=== PATIENT | female | born 1985 | race Caucasian/White ===

== ENCOUNTER 2017-12-20 06:09 | Inpatient (IN) ==
[2017-12-20] MEDS ORDERED: Lidocaine -MPF 1% 2 ML VIAL ID ONE (06:29)
[2017-12-20] MEDS ORDERED: CeFAZolin Syr 2,000MG/20 ML 2,000 MG/20 ML SYRINGE IVPB ONE (06:29)
[2017-12-20] MEDS ORDERED: Ringers Solution, Lactated 1,000 ML IVC SCH (06:30)
[2017-12-20] MEDS ORDERED: Acetaminophen IV 1,000 MG/100 ML INFUS..BTL IVPB ONE (06:59)
[2017-12-20] MEDS ORDERED: Scopolamine Patch 1.5 MG PATCH.TD72 TD ONE (06:59)
--- NOTE | 2017-12-20 06:59 | Anesthesia Evaluation PreOp ---
Date of Encounter: 12/20/17 Time of Encounter: 06:57 - Past History Planned Operation: LITTLE poss salpingo-oophorectomy Cardiac History: Denies any Significant Hx Pulmonary History: Denies Any Significant HX INTEGRATION SOFTWARE ENGINEER History: Denies Any Significant HX Other Medical History: Denies Any Significant HX Anesthesia History: No Prior Anesthetic Complications, Past Anesthesia (wisdom teeth, appy, csection x 2) Test: Negative (12/20/17) Alcohol Use: none Drug use: none Medications and Allergies Cetirizine HCl [Zyrtec] 10 mg PO DAILY 12/20/17 [History] 3 Allergy/AdvReac Type Severity Reaction Status Date / Time No Known Allergies Allergy Verified 12/20/17 06:44 - Meds/Allergy Pre-op Review Medications Reviewed: Yes Allergies Reviewed: Yes Beta Blockers on Current Med List: No Anesthesia Results - Labs Laboratory Tests 12/12/17 12/12/17 11:27 11:27 WBC 4.2 L Hgb 12.8 Hct 38.9 Plt Count 262 Creatinine 0.71 Est GFR ( Amer) > 60 Anesthesia Exam O2 Sat Height 1.65 m Height 1.65 m Height 1.65 m Weight 74.389 kg Weight 74.389 kg Weight 74.389 kg O2 Sat by Pulse Oximetry 100 Vital Signs Temp Pulse Resp BP Pulse Ox 98.3 F 90 18 113/79 100 12/20/17 06:34 12/20/17 06:34 12/20/17 06:34 12/20/17 06:34 12/20/17 06:34 Height: 65" Weight: 164lbs NPO (# of Hours): >8 - HEENT Pupil (Motor): Pupils equal, EOMI Mallampati: II Teeth: Normal Oral Opening: Greater than 3 - INTEGRATION SOFTWARE ENGINEER LOC: Oriented INTEGRATION SOFTWARE ENGINEER Motor: Normal RUE, Normal LUE, Normal RLE, Normal LLE, Normal Face INTEGRATION SOFTWARE ENGINEER Sensory: Normal: RUE, LUE, RLE, LLE, Face - Cardiac Rhythm: Regular - Pulmonary Breath Sounds: bilateral Clear Respiratory Effort: Symmetrical Anesthesia Assess/Plan ASA Score: 1 Modified Blayne Scale for Level of Consciousness: Cooperative, oriented, and tranquil Anesthetic Plan: General, Regional (patient refusesintrathecal duramorph) Monitoring Plan: Standard Monitors Recovery Plan: PACU
[2017-12-20] MEDS ORDERED: Lidocaine -MPF 2% 2 ML VIAL ONE (07:11)
[2017-12-20] MEDS ORDERED: Lidocaine -MPF 4% 5 ML AMPUL ONE (07:11)
[2017-12-20] MEDS ORDERED: Dexamethasone 4 MG/ML VIAL ONE (07:11)
[2017-12-20] MEDS ORDERED: *HR* Midazolam HCl 2 MG/2 ML VIAL ONE (07:11)
[2017-12-20] MEDS ORDERED: *HR* Propofol 200 MG/20 ML VIAL IVP ONE (07:11)
[2017-12-20] MEDS ORDERED: *HR* FentaNYL (PF) 100 MCG/2 ML VIAL ONE ×2 (07:11→08:38)
[2017-12-20] MEDS ORDERED: *HR* Rocuronium Bromide 50 MG/5 ML VIAL ONE (07:11)
[2017-12-20] MEDS ORDERED: Ondansetron 4 MG/2 ML VIAL ONE (07:11)
[2017-12-20] MEDS ORDERED: Neostigmine Methylsulfate 3 MG/3 ML SYRINGE ONE (07:22)
[2017-12-20] MEDS ORDERED: Bupivacaine/EPI 1:200k 0.25%PF 30 ML VIAL ONE (07:29)
[2017-12-20] MEDS ORDERED: *HR* Belladonna Alkaloids/Opium 30 MG RECTAL SUPPOSITORY RC ONE (07:37)
--- NOTE | 2017-12-20 07:41 | History & Physical Report ---
Date of Encounter: 12/20/17 Time of Encounter: 07:40 24 Hour HP Update - Instructions Instructions: If the History and Physical is less than 30 days old and was completed prior to A.M. admission and or procedure and has NOT been updated on calendar day of procedure please complete this update prior to performing procedure. - Update Patient reports changes in Medical Condition: No Changes in examination, assessment, or condition: No Changes in Medication: No Preop tests/diagnostics Reviewed: Yes Surgery Remains Indicated: Yes Consent for Planned Operative Procedure(s) Verified: Yes - Pre-Operative Checklist Preoperative Checklist Indicated: Yes Prophylactic Antibiotic Ordered: Yes Home Medications Include Beta Andrew: No Beta Andrew Taken Today (Day of Surgery): No Beta Andrew Taken Yesterday (Day Prior to Surgery): No Is VTE Prophylaxis Indicated?: Yes - Attending Attestation sunitha field facog
[2017-12-20] MEDS ORDERED: Morphine Sulfate/PF 5mg/10mL Vial ONE (07:49)
[2017-12-20] MEDS ORDERED: Water for inj. (sterile) 10 ML IV ONE (07:54)
[2017-12-20] MEDS ORDERED: *HR* Promethazine 25 MG/ML VIAL IVP PRN (08:42)
[2017-12-20] MEDS ORDERED: Dexamethasone 4 MG/ML VIAL IVP ONE (08:42)
[2017-12-20] MEDS ORDERED: *HR* Labetalol 20 MG/4 ML SYRINGE IVP PRN (08:42)
[2017-12-20] MEDS ORDERED: Ondansetron 4 MG/2 ML VIAL IVP ONE (08:42)
--- NOTE | 2017-12-20 08:57 | Anesthesia Procedures ---
Date of Encounter: 12/20/17 Time of Encounter: 07:55 Procedures: Anesthesia - Epidural/Spinal Patient ID/Chart reviewed: Yes Patient examined: Yes Consent Obtained: Yes Supplemental Oxygen: None/Room Air Sedation: Versed (mg): 2 (documented on anesthesia record) Sedation: Fentanyl (mcg): 100 (documented on anesthesia record) Site Prep: Sterile prep and drape, Povidone-Iodine 1% Patient position: upright Local Anesthetic: Lidocaine 1% Amount of Local Anesthetic used: 3 Loading Dose: Other: 250mcg duramorph in 1cc PF sterile water Interspace Used: L2-L3 Blood: No CSF: Yes Paresthesia: No Spinal Needle Gauge: 22 Spinal Dose: n/a Procedure: pt upright with monitors on, sterile prep/drape, 3cc 1% lido to L2-3, 22g quincke with clear csf, free flow, no heme, no paresthesia, 1cc PF sterile water with 250mcg pf duramorph injected, pt assited to supine, induction to GETA , no complications, pt tolerated well.
[2017-12-20] MEDS ORDERED: Lacri-Lube 3.5 GM TUBE ONE (09:39)
[2017-12-20] MEDS ORDERED: Ketorolac 30 MG/ML VIAL ONE (09:51)
--- NOTE | 2017-12-20 09:55 | OB/GYN Procedure Note ---
Hysterectomy - Diagnosis Date of procedure: 12/20/17 Hysterectomy pre-op: abnormal uterine bleeding, chronic pelvic pain, other ( Adenomyosis) Post-op diagnosis: same - Procedure Hysterectomy procedure: total abdominal hysterectomy, bilateral salpingectomy Surgeon: Berny Andrew Was there an respiratory therapist assistant present: Yes Aviation Project Manager: Jen Hoffman Anesthesia provider: Carmella De La Torre Anesthesia Type: General (Intrathecal) Estimated blood loss (cc): 110 Complications: none Fluids: crystalloid Urine output (cc): 150 Specimens: uterus, cervix, right fallopian tube, left fallopian tube Findings: Areas consistent with adenomyosis were noted on the fundus of the uterus. The bladder was densely adherent to the lower uterine segment. Fallopian tubes and ovaries appeared be normal. Disposition: PACU Narrative: Patient was taken to the operating room. After satisfactory anesthesia was achieved, patient placed in supine position, Benavidez catheter inserted, and prepped and draped in usual manner. After satisfactory timeout was obtained, the abdomen was entered through standard Maylard incision. The Taylor retractor was placed. The bowels packed superiorly away from operative field. Uterus grasped with Regan clamps. Fallopian tubes were coagulated, cut, and sent to pathology for analysis. Round ligament on either side were coagulated and cut. The bladder was noted to be densely adherent to the anterior surface of the uterus. With sharp and blunt dissection the bladder was dissected away from the lower uterine segment. Uterine arteries were coagulated both sides and cut. Cardinal ligament pedicles were coagulated both sides and cut. Uterosacral ligaments were clamped cut suture-ligated. Vagina was entered anteriorly and the uterus and cervix were removed and sent to pathology for analysis. Cuff was closed with 0 Monocryl. After assurance of hemostasis, the bladder was reapproximated over the cuff. After assurance of hemostasis, the packs and retractors were removed. The abdomen was closed standard fashion using 0 Vicryl on the fascia and 3-0 Monocryl in the skin. Sterile dressing was applied. Patient did well was taken to recovery room in satisfactory condition. Counts were correct.
[2017-12-20] MEDS: *HR* Morphine 2 MG/ML SYRINGE IVP PRN ×2 (10:08→10:31)
--- NOTE | 2017-12-20 10:45 | Anesthesia Evaluation Post Op ---
Date of Encounter: 12/20/17 Time of Encounter: 10:45 - Vital Signs Vital Signs: Vital Signs/O2 Sat/Glucose, Most Current Temp Pulse Resp BP Pulse Ox 12/20/17 10:31 97.7 F 92 16 111/82 100 12/20/17 10:21 75 14 118/77 98 12/20/17 10:11 70 14 124/82 100 12/20/17 10:01 98.2 F 76 16 120/87 100 - Lungs Lungs: Clear Ascult./Percussion - Airway Airway: Non-obstructed - Cardiovascular Regular Rate - Mental Status Mental Status: Alert & Oriented, Answers Appropriately - Pain Pain Scale: 1 - Nausea Vomiting Nausea Vomiting: Not Present - Hydration Hydration: Ice chips - Discharge PostOp Status: Transfer Patient to floor
[2017-12-20] MEDS ORDERED: Sennosides 8.6 MG TABLET PO PRN (11:16)
[2017-12-20] MEDS ORDERED: Naloxone 0.4 MG/ML INJ IVP PRN (11:16)
[2017-12-20] MEDS ORDERED: Ondansetron 4 MG/2 ML VIAL IVP PRN (11:16)
[2017-12-20] MEDS ORDERED: Ringers Solution, Lactated 1,000 ML ONE (12:44)
[2017-12-21 04:33] LABS: Basophils % 0.4 %; Eosinophils % 0.4 %; Hematocrit 31.5 % (35.3-44.9); Hemoglobin 10.4 g/dL (11.5-15.4); Immature Granulocytes % 0.3 % (0-4); Lymphocytes # 1.5 K/mcL (0.6-4.6); Lymphocytes % 16.6 %; Mean Corpuscular Hemoglobin 29.7 pg (28.0-33.3); Mean Platelet Volume 9.7 fL (9.4-12.4); Monocytes # 0.6 K/mcL (0.0-1.3); Monocytes % 6.8 %; Platelet Count 210 K/mcL (140-400); Red Cell Distribution Width 11.8 % (11.5-14.5); Segmented Neutrophils % 75.5 %
[2017-12-21 04:58] LABS: eGFR For African Americans > 60 (> 60); eGFR For Non-African Americans > 60 (> 60)
[2017-12-21] MEDS: *HR* HYDROcodone/Acet 5/325 mg TABLET PO PRN ×2 (06:26→10:38)
[2017-12-21 08:20] VITALS: BP 118/78
[2017-12-21] MEDS ORDERED: Loratadine 10 MG TABLET PO SCH (09:00)
--- NOTE | 2017-12-21 09:14 | Discharge Summary ---
Date of Encounter: 12/21/17 Time of Encounter: 09:13 - Discharge Diagnosis (1) Uterus, adenomyosis Priority: Primary Status: Resolved (2) Post-op pain Priority: Secondary Status: Acute - Discharge Medications Prescriptions: HYDROcodone/Acet 5/325 mg [Mont[place] 5-325 mg] 1 tab PO Q4HR PRN 7 Days #30 tablet PRN Reason: Moderate Pain (4-6) Home Medications: Cetirizine HCl [Zyrtec] 10 mg PO DAILY 12/20/17 [History] HYDROcodone/Acet 5/325 mg [Montgomery 5-325 mg] 1 tab PO Q4HR PRN 7 Days #30 tablet 12/21/17 [Rx] Allergies/Adverse Reactions: 3 Allergy/AdvReac Type Severity Reaction Status Date / Time No Known Allergies Allergy Verified 12/20/17 06:44 Data Procedures and tests throughout hospitalization: Laboratory Tests 12/20/17 12/21/17 12/21/17 06:42 04:16 04:16 WBC 9.2 RBC 3.50 L Hgb 10.4 L Hct 31.5 L MCV 90.0 MCH 29.7 MCHC 33.0 RDW 11.8 Plt Count 210 MPV 9.7 Immature Gran % 0.3 Seg Neutrophils % 75.5 Lymphocytes % 16.6 Monocytes % 6.8 Eosinophils % 0.4 Basophils % 0.4 Neutrophils # 7.0 Lymphocytes # 1.5 Monocytes # 0.6 Eosinophils # 0.0 Basophils # 0.0 Creatinine 0.60 Est GFR ( Amer) > 60 Est GFR (Non-Af Amer) > 60 POC Urine HCG, Qual Negative Labs on day of discharge: Labs from last 24 hours 12/21/17 12/21/17 12/20/17 04:16 04:16 06:42 WBC 9.2 RBC 3.50 L Hgb 10.4 L Hct 31.5 L MCV 90.0 MCH 29.7 MCHC 33.0 RDW 11.8 Plt Count 210 MPV 9.7 Immature Gran % 0.3 Seg Neutrophils % 75.5 Lymphocytes % 16.6 Monocytes % 6.8 Eosinophils % 0.4 Basophils % 0.4 Neutrophils # 7.0 Lymphocytes # 1.5 Monocytes # 0.6 Eosinophils # 0.0 Basophils # 0.0 Creatinine 0.60 Est GFR ( Amer) > 60 Est GFR (Non-Af Amer) > 60 POC Urine HCG, Qual Negative Date of admission: 12/20/17 10:54 Primary care physician: Giovanna Field CNP - Patient Status Disposition: Home, Self-Care Condition: Good Functional capacity at discharge: independent ambulation Overall status at discharge: patient is back to baseline - Discharge Instructions Follow Up With: Giovanna Field CNP [Primary Care Provider] - Rakesh Queen [Family Provider] - - Diet and Activity Activity: increase activity as tolerated Diet: advance to your usual diet Hospital Course ASSEMBLER MOLDED FRAMES Time Attestation: Total time spent providing and/or coordinating discharge services: Exam - Constitutional Vitals: Temp Pulse Resp BP Pulse Ox 98.4 F 84 12 118/78 97 12/21/17 08:00 12/21/17 08:00 12/21/17 08:00 12/21/17 08:00 12/21/17 08:00 General appearance IM: A&O X 3 - Respiratory Respiratory exam: Present: CTAB - Cardiovascular Cardiovascular exam IM: Present: RRR - GI/Abdominal GI/Abdominal exam IM: normal bowel sounds, soft Incision: normal, intact - Extremities Exam Extremities exam IM: Present: full ROM - Neurological Exam Neurological exam: CN II-XII intact - VTE Documentation of Mechanical Device: Graduated compression elastic hosiery - Attending Attestation sunitha carreno md facog
== END 2017-12-21 13:56 | disposition home or self-care (01) | DRG 743 ==
LOC: SAMDAY 06:09 → 1NENUOBS 10:54
PROVIDERS: ADMIT Obstetrics & Gynecology; ATTEND Obstetrics & Gynecology